=== PATIENT | female | born 1940 | race Caucasian/White ===

== ENCOUNTER 2019-01-08 14:19 | Emergency (ER) | payer OTHER ==
[2019-01-08 14:33] VITALS: BP 121/58; PULSE 67; TEMP 97.9; BMI 25.0
--- NOTE | 2019-01-08 16:27 | PDOC ---
History of Present Illness - General Chief Complaint: Edema Stated Complaint: SWOLLEN RIGHT FOOT Time Seen by Provider: 01/08/19 15:47 History Source: Patient Exam Limitations: No Limitations - History of Present Illness Initial Comments: 01/08/19 16:19 Patient is an 78 y/o female with a history of anxiety and depression who presents for noticed swelling in her right foot. She states she has noticed it over the past few days. She also has a skin color change at the top of her foot. She excercises and is able to ambulate on it. She did research online and was nervous she has a clot so she went to urgent care who told her to come to the Emergency Department. She also notes she has numbness and tingling in her feet but has not completed the outpatient workup for neuropathy. She denies fever, chills, nausea, vomiting, chest pain, or shortness of breath. Past History - Past Medical History Allergies/Adverse Reactions: Allergies Allergy/AdvReac Type Severity Reaction Status Date / Time Penicillins Allergy Verified 01/08/19 14:33 Home Medications: Ambulatory Orders Bupropion HCl [Wellbutrin -] 300 mg PO DAILY 01/19/15 Escitalopram Oxalate [Lexapro -] 10 mg PO DAILY 01/19/15 Sulfamethoxazole/Trimethoprim [Bactrim Ds -] 1 tab PO BID #6 tablet 01/19/15 clonazePAM [KlonoPIN] 0.5 mg PO TID PRN 01/19/15 Bupropion HCl [Bupropion Xl] #30 01/23/15 Bupropion HCl [Wellbutrin -] #60 01/23/15 Ciprofloxacin HCl #6 01/23/15 Clonazepam #120 01/23/15 Clonazepam #30 01/23/15 Dexamethasone 0.1% Eye Drops - #5 01/23/15 Escitalopram Oxalate #30 01/23/15 Escitalopram Oxalate #30 01/23/15 Lactulose #946 01/23/15 Methylprednisolone #4 01/23/15 Ondansetron HCl #40 01/23/15 Pantoprazole Sodium #30 01/23/15 Sulfamethoxazole/Trimethoprim [Sulfamethoxazole-Tmp Ds Tablet] #6 01/23/15 traMADol HCL [Ultram -] #20 01/23/15 COPD: No Psychiatric Problems: Yes (DEPRESSION) - Suicide/Smoking/Psychosocial Hx Smoking History: Never smoked Number of Cigarettes Smoked Daily: 0 Hx Alcohol Use: No Substance Use Type: None Hx Substance Use Treatment: No Review of Systems - Review of Systems Constitutional: No: Chills, Fever HEENTM: No: Eye Pain Respiratory: No: Cough, Shortness of Breath Cardiac (ROS): No: Chest Pain ABD/GI: No: Diarrhea, Nausea, Vomiting Musculoskeletal: Yes: Joint Pain Integumentary: Yes: Erythema *Physical Exam - Vital Signs Last Vital Signs Temp Pulse Resp BP Pulse Ox 97.9 F 67 18 121/58 L 99 01/08/19 14:30 01/08/19 14:30 01/08/19 14:30 01/08/19 14:30 01/08/19 14:30 - Physical Exam Comments: 01/08/19 16:27 GENERAL: awake, alert, and oriented HEART: RRR, no murmurs, rubs, or gallops LUNGS: CTAL B/L ABDOMEN: soft, non tender, non dsitended EXTREMITIES: no swelling, thin feet, slight tenderness over dorsal aspect of right foot SKIN: rectangular patch of erythema over dorsal aspect of right foot Medical Decision Making - Medical Decision Making 01/08/19 18:01 dopplers of arterial and veins to r/o vascular insuficiency 01/08/19 18:17 doppler and duplex normal, no abnormalities seen patient to be discharged and follow up with PCP *DC/Admit/Observation/Transfer Diagnosis at time of Disposition: Foot pain Qualifiers: Laterality: right Qualified Code(s): M79.671 - Pain in right foot - Discharge Dispostion Disposition: HOME Condition at time of disposition: Good - Referrals Referrals: Wen Beverly [Primary Care Provider] - Myles Adam DPM [Staff Physician] - Remigio Dudley MD [Non Staff, Medical] - - Patient Instructions Additional Instructions: While you were in the emergency department we did imaging of your right leg. The imaging showed that everything is normal. If you would like to follow up with a vascular surgeon you can make an appointment with Dr. Dudley. Please return to the Emergency Department if you have any difficulty walking, nausea, vomiting, chest pain, shortness of breath, or dizziness. - Post Discharge Activity
--- NOTE | 2019-01-08 17:16 | PDOC ---
Attending Attestation - Resident Resident Name: Lo Chun - ED Attending Attestation I have performed the following: I have examined & evaluated the patient, The case was reviewed & discussed with the resident, I agree w/resident's findings & plan - HPI HPI: 01/08/19 18:47 [id number], with significant past medical history of anxiety and depression, who present to the ED from Urgent Care with, swelling to right foot a/w. While at urgent care patient endorses discoloration to her right foot with minimal pain and blt foot swelling. She endorses taking various exercise classes (approx. 1 hr/day) at which time she does high intensity stretches and primarily wearing sneakers throughout the day. While in the ER, she notes coldness to her feet which she endorses is her baseline. She denies any recent injury to the extremity or change in strength/sensation to the foot. Went to urgent care today , referred to the ED for ultrasound of extremity to r/o PVD. - Physicial Exam PE: 01/08/19 17:11 GENERAL: awake, alert, and oriented, NAD HEENT: EOMI, PERRL, nl conjunctiva HEART: RRR, no murmurs, no peripheral edema. LUNGS: CTAB, no respiratory distress. ABDOMEN: soft, non tender MSK/ EXTREMITIES: no swelling, thin feet, slight tenderness over dorsal aspect of right foot, cool to touch bilaterally, dry - no calf tenderness, no peripheral edema. soft compartments. SKIN: rectangular patch of erythema over dorsal aspect of right foot, nontender. normal color for ethnicity, 1+ blt DP and PT bilaterally. cap refill = 2 seconds. dry cool skin. Neuro: SILT in all extrem, 5/5 plantar and dorsiflexion. 01/08/19 17:17 - Medical Decision Making 01/08/19 17:21 See HPI for details Vital signs reviewed, wnl. Ddx. PVD/PAD, DVT, ischemic limb. neuropathy. msk strain. plantar fasciitis. Prior notes reviewed, including admissions, discharges and consultations. imaging reviewed, Duplex - arterial and venous to r/o ischemic limb/PAD and DVT given cool extremities, but neuro intact ED course - no acute events, min complaints. no analgesia meds needed, comfortable in bed no cardiac risk factors to suggest thrombosis/embolism. duplex neg for DVT via imaging elderly companion, no arterial occlusion noted, so doubt ischemic limb. she is comfortable, ambulatory, has appropriate followup. dispo: f/u podiatry, PMD neuro for emg testing. Pt informed of my clinical impression, treatment recommendations and disposition plan. All questions answered to patient's satisfaction and expressed understanding and comfort with this. Reasons for returning to the ED sooner discussed with the patient otherwise, follow up with primary care physician. At the time of discharge, the patient is alert, clinically improved, tolerating po and verbalizes understanding of instructions. Patient does not suffer from an acute life-threatening medical condition at this time she is safe for outpatient follow-up. 01/08/19 18:47
== END 2019-01-08 18:48 | disposition home or self-care (01) ==
LOC: JER 14:19
DX: M79.671 Pain in right foot (principal); F32.9 Major depressive disorder, single episode, unspecified; F41.8 Other specified anxiety disorders
CPT/HCPCS: 93925-TC; 93970-TC; 99282-25

== ENCOUNTER 2022-08-13 04:05 | Day surgery (SDC) | payer OTHER, BC ==
[2022-08-12 12:55] VITALS: BMI 25.0
[2022-08-13] MEDS ORDERED: MIDAZOLAM HCL 2 MG/2 ML SINGLE DOSE VIAL ONE (07:47)
[2022-08-13 09:15] VITALS: TEMP 100
[2022-08-13 09:20] VITALS: BP 111/46; PULSE 64; RESP 18
== END 2022-08-13 09:36 | disposition home or self-care (01) ==
LOC: JASU-ENDO 04:05
PROVIDERS: ATTEND Internal Medicine Gastroenterology
PROC: 0DJD8ZZ Inspection of Lower Intestinal Tract, Via Natural or Artificial Opening Endoscopic (ICD-10-PCS; principal; 2022-08-13 08:00)
DX: Z12.11 Encounter for screening for malignant neoplasm of colon (principal); K63.89 Other specified diseases of intestine; Z80.0 Family history of malignant neoplasm of digestive organs